=== PATIENT | female | born 1980 | race Caucasian/White ===

== ENCOUNTER 2022-11-23 06:42 | Emergency (ER) | payer OTHER ==
[2022-11-23 08:37] LABS: Urine Blood 1+ (Negative); Urine Glucose Negative (Negative); Urine Protein Negative (Negative); Urine Specific Gravity 1.025 (1.005-1.030)
[2022-11-23 08:57] LABS: Urine Bacteria 20-50 /HPF (<20); Urine Mucus Slight /HPF (None Seen); Urine RBC <5 /HPF (None Seen); Urine WBC Clump Rare /HPF (None Seen)
--- NOTE | 2022-11-23 09:08 | EDPHYS ---
Physician Documentation [facility] Name: Fabiola Lopez Age: 42 yrs Sex: Female : 1980 Arrival Date: 11/23/2022 Time: 06:49 Bed IW1 Private MD: ED Physician Osman Stephenson HPI: 11/23 08:00 This 42 yrs old Female presents to ER via Ambulatory with complaints of Vaginal kb Infection. 08:00 The patient presents with a possible exposure to a sexually transmitted disease. Onset: kb The symptoms/episode began/occurred this morning. Modifying factors: The symptoms are alleviated by nothing, the symptoms are aggravated by nothing. Associated signs and symptoms: The patient has no apparent associated signs or symptoms. Severity of symptoms: At their worst the symptoms were mild, in the emergency department the symptoms are unchanged. The patient is sexually active, reports multiple partners. The patient has experienced similar episodes in the past, a few times. The patient has not recently seen a physician. Pt presents because she feels like she has a vaginal infection. States she feels like her pH is off. Denies urinary symptoms, vaginal bleeding, vaginal discharge. Pt also reports chronic sciatica with right hip pain for 6 months that is better today than it had been. Reports she takes hydrocodone and soma "when I can get it off the street.". 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 - Social history:: Smoking status: Patient reports the use of cigarette tobacco products, denies chronic smoking, but will smoke occasionally. ROS: 07:57 Constitutional: Negative for fever, chills, and weight loss. kb 07:57 : Positive for "it feels like my pH is off". 07:57 All other systems are negative. 09:13 MS/extremity: Positive for pain, of the right hip. kb Exam: 07:57 Constitutional: This is a well developed, well nourished patient who is awake, alert, kb and in no acute distress. Head/Face: Normocephalic, atraumatic. ENT: Moist Mucous membranes Cardiovascular: Regular rate and rhythm with a normal S1 and S2. No gallops, murmurs, or rubs. No pulse deficits. Respiratory: Respirations even and unlabored. No increased work of breathing. Talking in full sentences Abdomen/GI: Soft, non-tender. No distention Back: No spinal tenderness. No costovertebral tenderness. Full range of motion. Skin: Warm, dry with normal turgor. Normal color. MS/ Extremity: Pulses equal, no cyanosis. Neurovascular intact. Full, normal range of motion. Neuro: Awake and alert, GCS 15, oriented to person, place, time, and situation. Moves all extremities. Normal gait. Vital Signs: 06:53 BP 138 / 98; Pulse 106; Resp 18; Temp 97; Pulse Ox 100% ; Weight 90.72 kg; Height 5 ft. tw5 9 in. (175.26 cm); Pain 4/10; 06:53 Body Mass Index 29.53 (90.72 kg, 175.26 cm) tw5 MDM: 06:50 Patient medically screened. 07:21 Differential diagnosis: bacterial infection, UTI. Data reviewed: vital signs, nurses kb notes. Test considered but Not performed: X-ray: hip x-ray considered but pt has had no injury/trauma and pain is chronic. 08:12 ED course: Awaiting urine sample, pt has been asked multiple times and reports she doesn't feel an urge to urinate yet. 09:06 I considered the following discharge prescriptions or medication management in the emergency department Pain Medications: At this time, prescription pain medications are not recommended. 09:06 Counseling: I had a detailed discussion with the patient and/or guardian regarding: the historical points, exam findings, and any diagnostic results supporting the discharge/admit diagnosis, lab results, the need for outpatient follow up, a family practitioner, to return to the emergency department if symptoms worsen or persist or if there are any questions or concerns that arise at home. 10:56 Differential diagnosis: pelvic inflammatory disease, urinary tract infection. kb 11/23 07:05 Order name: Urine Microscopic Only; Complete Time: 09:06 kb 11/23 08:38 Order name: Urine Dipstick-Ancillary; Complete Time: 08:42 EDMS 11/23 07:05 Order name: Urine Dipstick-Ancillary (obtain specimen); Complete Time: 08:39 kb 11/23 07:05 Order name: Urine Test (obtain specimen); Complete Time: 08:39 kb 11/23 08:50 Order name: Urine --Ancillary (enter results); Complete Time: 09:15 bd Administered Medications: No medications were administered Disposition: 11/24 06:05 Co-signature as Attending Physician, Osman Stephenson MD I reviewed the patient's care rt provided by the Advanced Practice Provider and agree with the diagnosis and treatment plan. Disposition Summary: 11/23/22 09:07 Discharge Ordered Location: Home kb Condition: Stable kb Diagnosis - UTI/ Urinary tract infection, site not specified kb Followup: kb - With: Emergency Department - When: As needed - Reason: Worsening of condition Followup: kb - With: Private Physician - When: 2 - 3 days - Reason: Recheck today's complaints, Continuance of care, Re-evaluation by your physician Discharge Instructions: - Discharge Summary Sheet kb - Urinary Tract Infection, Adult, [id number]-[id number] kb Forms: - Medication Reconciliation Form kb - Thank You Letter kb - Antibiotic Education kb - Prescription Opioid Use kb Prescriptions: - Macrobid 100 mg Oral Capsule - take 1 capsule by ORAL route every 12 hours for 10 days; 20 capsule; Refills: kb 0, Product Selection Permitted - Metronidazole 500 mg Oral Tablet - take 1 tablet by ORAL route every 8 hours for 7 days; 21 tablet; Refills: 0, kb Product Selection Permitted Signatures: Dispatcher [employer] EDMO Megan Anguiano, LAURAC SALES TRAINING REPRESENTATIVE-Sandi Arroyo tw5 Osman Stephenson MD MD rt Corrections: (The following items were deleted from the chart) 11/23 09:15 08:00 Pt presents because she feels like she has a vaginal infection. States she feels kb like her pH is off. Denies urinary symptoms, vaginal bleeding, vaginal discharge. . kb
--- NOTE | 2022-11-23 09:08 | ER ---
Nurse's Notes [facility] Name: Fabiola Lopez Age: 42 yrs Sex: Female : 1980 Arrival Date: 11/23/2022 Time: 06:49 Bed IW1 Private MD: Diagnosis: UTI/ Urinary tract infection, site not specified Presentation: 11/23 06:53 Chief complaint: Patient states: "I have an infection, in my vagina and I just want it tw5 taken care.". Coronavirus screen: Vaccine status: Patient reports being unvaccinated. Ebola Screen: Patient negative for fever greater than or equal to 101.5 degrees Fahrenheit, and additional compatible Ebola Virus Disease symptoms Patient denies exposure to infectious person. Patient denies travel to an Ebola-affected area in the 21 days before illness onset. Initial Sepsis Screen: Does the patient meet any 2 criteria? HR > 90 bpm. Does the patient have a suspected source of infection? Yes: Dysuria/Frequency/Urgency/UTI. Risk Assessment: Do you want to hurt yourself or someone else? Patient reports no desire to harm self or others. Onset of symptoms is unknown. 06:53 Method Of Arrival: Ambulatory tw5 06:53 Acuity: DELFINA 4 tw5 07:03 Coronavirus screen: Vaccine status:. tw5 Triage Assessment: 07:03 General: Appears uncomfortable, Behavior is crying. 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 - Social history:: Smoking status: Patient reports the use of cigarette tobacco products, denies chronic smoking, but will smoke occasionally. Screenin:59 [facility] ED Fall Risk Assessment (Adult) History of falling in the last 3 months, tw5 including since admission No falls in past 3 months (0 pts). Abuse screen: Has been threatened or abused. Nutritional screening: No deficits noted. Tuberculosis screening: No symptoms or risk factors identified. Assessment: 06:59 General: Behavior is appropriate for age, anxious, crying. Pain: Pain currently is 8 tw5 out of 10 on a pain scale. 07:10 Reassessment: not in lobby. Told registration she was going to her vehicle to smoke. ll1 07:20 Reassessment: still not in lobby. ll1 07:30 Reassessment: Has not returned from outside. ll1 07:40 Reassessment: No changes from previously documented assessment. Patient drinking fluids ll1 to help provide a urine sample. Given another urine cup, as she left the last one in her vehicle. No longer crying. 07:57 Reassessment: still trying to provide a urine sample. ll1 08:39 Reassessment: No changes from previously documented assessment. Patient and/or family ss updated on plan of care and expected duration. Pain level reassessed. UA sent to lab. 09:03 Reassessment: Micro tech called stating that they need a little more urine in order to ss run the culture. Attempted to locate patient in lobby. Unable to locate patient. ER registration staff states that patient has been going to her car to go smoke. TAYLER Guzman notified and states she will discharge patient with abx. Vital Signs: 06:53 BP 138 / 98; Pulse 106; Resp 18; Temp 97; Pulse Ox 100% ; Weight 90.72 kg; Height 5 ft. tw5 9 in. (175.26 cm); Pain 4/10; 06:53 Body Mass Index 29.53 (90.72 kg, 175.26 cm) tw5 ED Course: 06:49 Patient arrived in ED. ja2 06:50 Megan Anguiano FNP-C [facility] kb 06:50 Osman Stephenson MD is Attending Physician. kb 06:57 Triage completed. tw5 07:03 Arm band placed on left wrist. tw5 07:03 No provider procedures requiring assistance completed. tw5 07:06 Terrence Avila, RN is Primary Nurse. ll1 07:06 Patient placed in waiting room. ll1 08:39 Urine Microscopic Only Sent. ss 09:16 Patient did not have IV access during this emergency room visit. ss Administered Medications: No medications were administered Medication: 06:59 VIS not applicable for this client. tw5 Outcome: 09:07 Discharge ordered by . kb 09:16 Discharged to home ambulatory. ss 09:16 Condition: good 09:16 Discharge instructions given to patient, Instructed on discharge instructions, follow up and referral plans. medication usage, Demonstrated understanding of instructions, follow-up care, medications, Prescriptions given X 2. 09:16 Patient left the ED. ss Signatures: Megan Anguiano, MIKA DUFF-Dara Velasquez RN RN ss Terrence Avila RN RN ll1 Linda Mooney Tiffany tw5
[2022-11-23 09:09] LABS: Urine Specific Gravity/Preg 1.025 (1.005-1.030)
== END 2022-11-23 09:16 | disposition home or self-care (01) ==
LOC: ER 06:42
DX: N39.0 Urinary tract infection, site not specified (principal)
CPT/HCPCS: 81003; 81015; 81025; 99283

== ENCOUNTER 2023-06-19 22:20 | Emergency (ER) | payer OTHER, SELFPAY ==
--- NOTE | 2023-06-19 23:15 | EDPHYS ---
Physician Documentation [facility] Name: Fabiola Lopez Age: 43 yrs Sex: Female : 1980 Arrival Date: 06/19/2023 Time: 22:20 Bed 12 Private MD: ED Physician Henrry Carrasco HPI: 06/19 23:17 This 43 yrs old Female presents to ER via Ambulatory with complaints of Headache, sb4 Nausea. 06/20 00:58 The patient complains of pain to the forehead. The patient describes the headache as sb4 intermittent, pounding. Onset: The symptoms/episode began/occurred 8 hour(s) ago. Associated signs and symptoms: Pertinent positives: dizziness, nausea, Pertinent negatives: fever, neck stiffness, vomiting. Severity of symptoms: At its worst the pain was moderate, in the emergency department the pain has improved. Headache History: The patient has had previous headaches and this one is similar to previous episodes. Patient states that she had a severe headache earlier in the day prior to her previous headaches but it has now improved. She is not wanting a work-up done, just some relief so she can go home and lay down. Historical: - Allergies: 06/19 23:16 No Known Allergies; pf1 - PMHx: 23:16 Migraine; kidney infection; pf1 - PSHx: 23:16 section; pf1 - Immunization history:: Adult Immunizations up to date, Client reports having NOT received the Covid vaccine. Last tetanus immunization: < 10 years ago Flu vaccine is not up to date. - Social history:: Smoking status: Patient reports the use of cigarette tobacco products, smokes one pack cigarettes per day. Patient uses street drugs, marijuana, Methamphetamine (Meth) Patient/guardian denies using alcohol. ROS: 06/20 00:58 Constitutional: Negative for fever, chills, and weight loss, Eyes: Negative for injury, sb4 pain, redness, and discharge, ENT: Negative for injury, pain, and discharge, Cardiovascular: Negative for chest pain, palpitations, and edema, Respiratory: Negative for shortness of breath, cough, wheezing, and pleuritic chest pain, Abdomen/GI: Negative for abdominal pain, nausea, vomiting, diarrhea, and constipation, Back: Negative for injury and pain, MS/Extremity: Negative for injury and deformity, Skin: Negative for injury, rash, and discoloration. Neuro: Positive for dizziness, headache, Negative for altered mental status, syncope. All other systems are negative. Exam: 00:58 Constitutional: This is a well developed, well nourished patient who is awake, alert, sb4 and in no acute distress. Head/Face: Normocephalic, atraumatic. Eyes: Extra-ocular motions intact. Periorbital areas with no swelling, redness, or edema. Cardiovascular: Regular rate and rhythm with a normal S1 and S2. Respiratory: Lungs have equal breath sounds bilaterally, clear to auscultation and percussion. No rales, rhonchi or wheezes noted. No increased work of breathing, no retractions or nasal flaring. Abdomen/GI: Soft, non-tender, no distension. Skin: Warm, dry with normal turgor. Normal color with no rashes, no lesions, and no evidence of cellulitis. MS/ Extremity: Pulses equal, no cyanosis. Neurovascular intact. Full, normal range of motion. Neuro: Awake and alert, GCS 15, oriented to person, place, time, and situation. Cranial nerves II-XII grossly intact. Motor strength 5/5 in all extremities. Sensory grossly intact. Cerebellar exam normal. Normal gait. Vital Signs: 06/19 23:05 BP 131 / 89; Pulse 89; Resp 18; Temp 97.4; Pulse Ox 100% on R/A; Weight 100.3 kg; pf1 Height 5 ft. 9 in. ; Pain 5/10; 23:05 Body Mass Index 32.65 (100.30 kg, 175.26 cm) pf1 23:05 Pain Scale: Adult pf1 Samuel Coma Score: 06/20 00:58 Eye Response: spontaneous(4). Motor Response: obeys commands(6). Verbal Response: sb4 oriented(5). Total: 15. MDM: 06/19 22:43 Patient medically screened. sb4 06/20 00:58 Differential diagnosis: hypertensive headache, migraine, tension headache, vasomotor sb4 headache. Data reviewed: vital signs, nurses notes, and as a result, I will discharge patient. Test considered but Not performed: Labs: Patient declined. CT: Head CT- not indicated. Counseling: I had a detailed discussion with the patient and/or guardian regarding: the historical points, exam findings, and any diagnostic results supporting the discharge/admit diagnosis, to return to the emergency department if symptoms worsen or persist or if there are any questions or concerns that arise at home. Administered Medications: 06/19 23:28 Drug: Ketorolac IM 30 mg Route: IM; Site: right gluteus; cg 23:37 Follow up: Response: No adverse reaction; Marked relief of symptoms pf1 Disposition: 06/20 07:28 Co-signature as Attending Physician, Henrry Carrasco MD I agree with the assessment sp4 and plan of care. I reviewed the patient's care provided by the Advanced Practice Provider and agree with the diagnosis and treatment plan. Disposition Summary: 06/19/23 23:15 Discharge Ordered Location: Home sb4 Problem: new sb4 Symptoms: have improved sb4 Condition: Stable sb4 Diagnosis - Headache sb4 Followup: sb4 - With: Private Physician - When: As needed - Reason: Recheck today's complaints, Continuance of care, Re-evaluation by your physician Discharge Instructions: - Discharge Summary Sheet sb4 - Migraine Headache sb4 Forms: - Medication Reconciliation Form sb4 - Thank You Letter sb4 - Antibiotic Education sb4 - Prescription Opioid Use sb4 - Patient Portal Instructions sb4 Signatures: Alice Allen, PEGGY RN Maine Coto PA-C PA-C sb4 Samara Escoto RN RN pf1 Henrry Carrasco MD MD sp4
[2023-06-19] MEDS ORDERED: KETOROLAC 30 MG/ML INJ ONE (23:35)
--- NOTE | 2023-06-19 23:37 | ER ---
Nurse's Notes [facility] Name: Fabiola Lopez Age: 43 yrs Sex: Female : 1980 Arrival Date: 06/19/2023 Time: 22:20 Bed 12 Private MD: Diagnosis: Headache Presentation: 06/19 23:05 Chief complaint: Patient states: headache pain of 5. onset at 1400 with nausea. Patient pf1 stated is feeling better at this time. Coronavirus screen: Vaccine status:. Coronavirus screen: Vaccine status: Patient reports being unvaccinated. Client denies travel out of the [place] in the last 14 days. At this time, the client does not indicate any symptoms associated with coronavirus-19. Ebola Screen: Patient negative for fever greater than or equal to 101.5 degrees Fahrenheit, and additional compatible Ebola Virus Disease symptoms. Initial Sepsis Screen: Does the patient meet any 2 criteria? No. Patient's initial sepsis screen is negative. Does the patient have a suspected source of infection? No. Patient's initial sepsis screen is negative. Risk Assessment: Do you want to hurt yourself or someone else? Patient reports no desire to harm self or others. 23:05 Method Of Arrival: Ambulatory pf1 23:05 Acuity: DELFINA 4 pf1 23:05 Onset of symptoms was June 19, 2023 at 14:00. pf1 Triage Assessment: 23:15 Headache History: The patient has had previous headaches and this one is similar to pf1 previous episodes. Historical: - Allergies: 23:16 No Known Allergies; pf1 - PMHx: 23:16 Migraine; kidney infection; pf1 - PSHx: 23:16 section; pf1 - Immunization history:: Adult Immunizations up to date, Client reports having NOT received the Covid vaccine. Last tetanus immunization: < 10 years ago Flu vaccine is not up to date. - Social history:: Smoking status: Patient reports the use of cigarette tobacco products, smokes one pack cigarettes per day. Patient uses street drugs, marijuana, Methamphetamine (Meth) Patient/guardian denies using alcohol. Screenin:15 [facility] ED Fall Risk Assessment (Adult) History of falling in the last 3 months, pf1 including since admission No falls in past 3 months (0 pts) Confusion or Disorientation No (0 pts) Intoxicated or Sedated No (0 pts) Impaired Gait No (0 pts) Mobility Assist Device Used No (0 pt) Altered Elimination No (0 pt) Score/Fall Risk Level 0 - 2 = Low Risk Oriented to surroundings, Maintained a safe environment, Educated pt \T\ family on fall prevention, incl call for assistance when getting out of bed, Assessed \T\ reinforced patient's understanding of fall precautions, Provided non-skid footwear, Hourly rounding (assess needs \T\ fall precautionary measures) done, Used ambulatory aids as needed (educated on \T\ assisted with), Used gait belt as appropriate. 23:15 Abuse screen: Denies threats or abuse. Nutritional screening: No deficits noted. pf1 Tuberculosis screening: No symptoms or risk factors identified. Assessment: 23:15 General: Appears in no apparent distress. comfortable, well groomed, well developed, pf1 Behavior is calm, cooperative, appropriate for age, quiet. 23:15 Pain: Complains of pain in forehead Pain currently is 5 out of 10 on a pain scale. pf1 Neuro: Level of Consciousness is awake, alert, obeys commands, Oriented to person, place, time, situation, Reports headache frontal area. Cardiovascular: No deficits noted. Capillary refill < 3 seconds Patient's skin is warm and dry. Respiratory: No deficits noted. Airway is patent Respiratory effort is even, unlabored, Respiratory pattern is regular, symmetrical. GI: No deficits noted. No signs and/or symptoms were reported involving the gastrointestinal system. Reports nausea. : No deficits noted. No signs and/or symptoms were reported regarding the genitourinary system. EENT: No deficits noted. No signs and/or symptoms were reported regarding the EENT system. Derm: No deficits noted. No signs and/or symptoms reported regarding the dermatologic system. Vital Signs: 23:05 BP 131 / 89; Pulse 89; Resp 18; Temp 97.4; Pulse Ox 100% on R/A; Weight 100.3 kg; pf1 Height 5 ft. 9 in. ; Pain 5/10; 23:05 Body Mass Index 32.65 (100.30 kg, 175.26 cm) pf1 23:05 Pain Scale: Adult pf1 Matlock Coma Score: 06/20 00:58 Eye Response: spontaneous(4). Motor Response: obeys commands(6). Verbal Response: sb4 oriented(5). Total: 15. ED Course: 06/19 22:26 Patient arrived in ED. es 22:43 Maine Vargas [facility]-C [facility]. sb4 22:43 Henrry Carrasco MD is Attending Physician. sb4 23:15 Triage completed. pf1 23:15 No provider procedures requiring assistance completed. pf1 23:15 Patient did not have IV access during this emergency room visit. pf1 23:15 Patient has correct armband on for positive identification. pf1 23:15 Provided Education on: medication administration. pf1 23:15 Arm band placed on right wrist. pf1 Administered Medications: 23:28 Drug: Ketorolac IM 30 mg Route: IM; Site: right gluteus; cg 23:37 Follow up: Response: No adverse reaction; Marked relief of symptoms pf1 Medication: 23:37 VIS not applicable for this client. pf1 Outcome: 23:15 Discharge ordered by . sb4 23:36 Discharged to home ambulatory. pf1 23:36 Condition: improved 23:36 Discharge instructions given to patient, Instructed on discharge instructions, follow up and referral plans. Demonstrated understanding of instructions, follow-up care. 23:37 Patient left the ED. pf1 Signatures: Christiane Trejo Cindy, RN RN Maine Vargas PA-C PA-C sb4 Samara Escoto RN RN pf1
[2023-06-19 23:42] VITALS: BP 131/89; TEMP 97.4; O2SAT 100
== END 2023-06-19 23:37 | disposition home or self-care (01) ==
LOC: ER 22:20
DX: R51.9 Headache, unspecified (principal); R42 Dizziness and giddiness
CPT/HCPCS: 96372; 99284

== ENCOUNTER 2023-09-13 21:05 | Emergency (ER) | payer SELFPAY ==
[2023-09-13] MEDS ORDERED: CYCLOBENZAPRINE 10 MG TAB ONE (22:45)
[2023-09-13] MEDS ORDERED: dexAMETHasone 4 MG/ML VIAL ONE (22:45)
[2023-09-13] MEDS ORDERED: KETOROLAC 30 MG/ML INJ ONE (22:45)
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
== END 2023-09-13 23:07 | disposition home or self-care (01) ==
LOC: ER 21:05
DX: M54.31 Sciatica, right side (principal)
CPT/HCPCS: 99282; J1100

== ENCOUNTER 2024-02-16 13:28 | Emergency (ER) | payer OTHER ==
[2024-02-16] MEDS ORDERED: NA CHLORIDE 0.9% 1,000 ML ONE (14:46)
[2024-02-16 15:30] LABS: Specific Gravity > 1.030 (1.005-1.030)
[2024-02-16 15:38] LABS: Barbiturates NEGATIVE (NEGATIVE); Benzodiazepines NEGATIVE (NEGATIVE); Cocaine NEGATIVE (NEGATIVE); METHAMPHETAM POSITIVE (NEGATIVE); Methadone NEGATIVE (NEGATIVE); Opiates NEGATIVE (NEGATIVE); Phencyclidine NEGATIVE (NEGATIVE); THC Cannibis NEGATIVE (NEGATIVE)
[2024-02-16 15:58] LABS: Specific Gravity > 1.030 (1.005-1.030); Sqamous Epithelial <5 /HPF (None Seen); Urine Bacteria 20-50 /HPF (<20); Urine Bilirubin NEGATIVE (Negative); Urine Blood 2+ (Negative); Urine Clarity Turbid (Clear); Urine Color Yellow (Yellow); Urine Culture Reflex Order REFLEXED; Urine Glucose NEGATIVE (Negative); Urine Ketones NEGATIVE (Negative); Urine Microscopic Reflex YN ORDER UMIC; Urine Mucus Slight /HPF (None Seen); Urine Nitrite NEGATIVE (Negative); Urine Protein TRACE (Negative); Urine RBC >50 /HPF (None Seen); Urine Urobilinogen Normal (Normal); Urine WBC 20-50 /HPF (<5); Urine pH 5.5 (5.0-7.0)
[2024-02-16 16:27] LABS: Absolute Basophils 0.1 K/uL (0-0.5); Absolute Eosinophils 0.3 K/uL (0-0.5); Absolute Lymphocytes (CBC) 2.3 K/uL (0.7-4.9); Absolute Monocytes 0.7 K/uL (0.1-1.3); Absolute Neutrophil 5.4 K/uL (1.8-8.0); Basophils % 0.8 % (0-1.3); Eosinophils % 2.9 % (0-4.4); Hematocrit 38.4 % (36.0-45.0); Hemoglobin 13.5 g/dL (12.0-15.0); Lymphocytes % 26.1 % (15.3-44.8); MCH 31.2 pg (27.0-35.0); MCHC 35.3 g/dL (32.0-36.0); MCV 88.5 fL (80-100); MPV 7.8 fL (7.6-11.3); Monocytes % 8.4 % (3.3-12.3); Neutrophils % 61.8 % (41.7-73.7); Nucleated RBC Absolute Count 0.1 (0-0); Nucleated Red Blood Cells % 0.7 % (0-0); Platelets 182 thou/uL (152-406); RBC Red Blood Cell Count 4.33 M/uL (3.86-4.86); Red Cell Distribution Width 12.4 % (12.1-15.2)
[2024-02-16 16:31] LABS: Albumin 3.2 g/dL (3.4-5.0); Albumin/Globulin Ratio 0.8 (1.1-1.8); Anion Gap 6.7 mEq/L (5.0-15.0); Bilirubin Total 0.3 mg/dL (0.2-1.0); Globulin 3.9 g/dL (2.3-3.5); Potassium 3.7 mEq/L (3.5-5.1); Protein, Total 7.1 g/dL (6.4-8.2)
[2024-02-16] MEDS ORDERED: KETOROLAC 30 MG/ML INJ ONE (16:31)
--- NOTE | 2024-02-16 17:04 | RAD REPORT ---
EXAM DESCRIPTION: CTAbdomen Pelvis W Contrast - 02/16/2024 4:55 pm CLINICAL HISTORY: Abdominal pain. ABD PAIN COMPARISON: Abdomen Pelvis Wo Contrast dated 12/02/2023 TECHNIQUE: Biphasic CT imaging of the abdomen and pelvis was performed with 100 ml non-ionic IV cont rast. All CT scans are performed using dose optimization technique as appropriate and may include automated exposure control or mA/KV adjustment according to patient size. FINDINGS: The lung bases are clear. The liver, spleen, pancreas, adrenal glands and kidneys are within normal limits. No bowel obstruction, free air, free fluid or abscess. There is significant stool retention seen thro ughout the colon. The appendix is normal. No evidence of significant lymphadenopathy. No suspicious bony findings. IMPRESSION: No acute intra-abdominal or pelvic finding. Prominent stool retention throughout the colon.
[2024-02-16 17:26] LABS: Blood Morphology Comment NOT SEEN (NOT SEEN); Platelet Estimate ADEQ; White Blood Cell Scan OK (OK)
[2024-02-16] MEDS ORDERED: CEFTRIAXONE 1000 MG/VIAL ONE (18:38)
--- NOTE | 2024-02-16 18:41 | EDPHYS ---
Physician Documentation [facility] Name: Fabiola Lopez Age: 44 yrs Sex: Female : 1980 Arrival Date: 02/16/2024 Time: 13:28 Bed 20 Private MD: ED Physician Avi Cordero HPI: 02/15 14:00 This 44 yrs old Female presents to ER via Ambulatory with complaints of Abdominal Pain, cp Vaginal issue. 14:00 The patient presents with abdominal pain. Associated signs and symptoms: Pertinent cp positives: vaginal discharge. 14:00 Onset: The symptoms/episode began/occurred 7 day(s) ago. cp 14:00 The symptoms do not radiate. cp 14:00 Modifying factors: the symptoms are aggravated by movement. Severity of pain: in the cp emergency department the pain is unchanged despite home interventions. 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 - Infectious Disease History:: Denies. - Social history:: Smoking status: unknown. ROS: 14:05 Eyes: Negative for injury, pain, redness, and discharge, cp 14:05 Constitutional: Negative for fever, poor PO intake, 14:05 ENT: Negative for drainage from ear(s), ear pain, sore throat, difficulty swallowing, difficulty handling secretions, 14:05 Cardiovascular: Negative for chest pain, 14:05 Respiratory: Negative for cough, shortness of breath, wheezing, 14:05 Abdomen/GI: Positive for abdominal pain, 14:05 : Positive for vaginal discharge, Negative for flank pain, 14:05 Neuro: Negative for altered mental status, headache, 14:05 All other systems are negative, Exam: 14:10 Constitutional: The patient appears in no acute distress, alert, awake, non-toxic, well cp developed, well nourished, anxious, tearful 14:10 Head/Face: Normocephalic, atraumatic. cp 14:10 Eyes: Periorbital structures: appear normal, Conjunctiva: normal, no exudate, no injection, Sclera: no appreciated abnormality, Lids and lashes: appear normal, bilaterally, 14:10 ENT: External ear(s): are unremarkable, Nose: is normal, Mouth: Lips: moist, Oral mucosa: pink and intact, moist, Posterior pharynx: is normal, airway is patent, no erythema, no exudate, 14:10 Chest/axilla: Inspection: normal, 14:10 Cardiovascular: Rate: tachycardic, Rhythm: regular, 14:10 Respiratory: the patient does not display signs of respiratory distress, Respirations: normal, no use of accessory muscles, no retractions, labored breathing, is not present, Breath sounds: are clear throughout, no decreased breath sounds, no stridor, no wheezing, 14:10 Abdomen/GI: Inspection: abdomen appears normal, Bowel sounds: active, all quadrants, Palpation: soft, in all quadrants, moderate abdominal tenderness, in the right lower quadrant and left lower quadrant, rebound tenderness, is not appreciated, involuntary guarding, is not appreciated, 14:10 Back: CVA tenderness, is absent, 14:10 Neuro: Orientation: to person, place \T\ time. Mentation: able to follow commands, Motor: moves all fours, strength is normal, Sensation: is normal, 18:35 : Pelvic Exam: The exam is refused by the patient/guardian. The risks and cp consequences are understood by the patient, Vital Signs: 13:51 BP 152 / 120; Pulse 110; Resp 20 S; Temp 97.1(TE); Pulse Ox 100% on R/A; Weight 97.52 aa5 kg (R); Height 5 ft. 9 in. (R); 15:11 BP 131 / 85; Pulse 99; Resp 18; Pulse Ox 100% on R/A; mg7 17:08 BP 139 / 78; Pulse 89; Resp 18; Pulse Ox 100% on R/A; mg7 17:33 BP 139 / 78; Pulse 93; Resp 20; Pulse Ox 100% on R/A; mg7 18:36 BP 140 / 77; Pulse 90; Resp 18; Temp 98.6; Pulse Ox 98% on R/A; Pain 3/10; mg7 13:51 Body Mass Index 31.75 (97.52 kg, 175.26 cm) aa5 18:36 Pain Scale: Adult mg7 13:51 Pt crying see triage note. aa5 Samuel Coma Score: 16:59 Eye Response: spontaneous(4). Motor Response: obeys commands(6). Verbal Response: mg7 oriented(5). Total: 15. MDM: 13:52 Patient medically screened. 16:00 Differential diagnosis: cholecystitis, Cholelithiasis, diverticulitis, non-specific abd cp pain, pancreatitis, Peptic Ulcer Disease, Perf. Duodenal Ulcer, Perf. Gastric Ulcer, Pyelonephritis, Ureterolithiasis, urinary tract infection, vaginitis. 18:40 Data reviewed: vital signs, nurses notes, lab test result(s), radiologic studies, CT cp scan. 18:40 I considered the following discharge prescriptions or medication management in the emergency department Medications were administered in the Emergency Department. See MAR. Counseling: I had a detailed discussion with the patient and/or guardian regarding the historical points, exam findings, and any diagnostic results supporting the discharge/admit diagnosis, lab results, radiology results, the need for outpatient follow up, a family practitioner, to return to the emergency department if symptoms worsen or persist or if there are any questions or concerns that arise at home. Response to treatment: the patient's symptoms have markedly improved after treatment, and as a result, I will discharge patient. Special discussion: Based on the patient's Hx, exam, and Dx evaluation, there is no indication for emergent surgery or inpatient Tx. It is understood by the patient/guardian that if the Sx's persist or worsen they need to return immediately for re-evaluation. 02/15 13:55 Order name: CBC with Diff 02/15 13:55 Order name: CMP; Complete Time: 17:14 02/15 17:14 Interpretation: Normal except: GFR 86; ALB 3.2; GLOB 3.9; A/G 0.8. 02/15 13:55 Order name: Lipase; Complete Time: 17:14 02/15 13:55 Order name: Test, Urine; Complete Time: 15:39 02/15 15:40 Interpretation: Reviewed. 02/15 13:55 Order name: Urinalysis w/ reflexes; Complete Time: 16:06 cp 02/15 16:06 Interpretation: Reviewed. 02/15 13:55 Order name: UDS; Complete Time: 15:39 02/15 15:39 Interpretation: Normal except: METHAMPHETAMINE POSITIVE. 02/15 16:02 Order name: Urine Culture EDNE 02/15 17:26 Order name: CBC Smear Scan EDNE 02/15 15:04 Order name: CT Abd/Pelvis - IV Contrast Only; Complete Time: 17:14 cp 02/15 17:18 Interpretation: Report reviewed. cp 02/15 13:55 Order name: IV Saline Lock; Complete Time: 15:09 cp 02/15 13:55 Order name: Labs collected and sent; Complete Time: 15:09 cp Administered Medications: 16:45 Drug: Ketorolac IVP 15 mg IVP once Route: IVP; Site: left antecubital; mg7 16:57 Drug: NS 0.9% IV 1000 ml IV at 1 bolus Per protocol; 1000 mL bolus Route: IV; Rate: 1 mg7 bolus; Site: left antecubital; 18:45 Follow up: IV Status: Completed infusion; IV Intake: 1000ml mg7 18:47 Drug: Rocephin IV 1 grams IV at calculated rate once; Given slow IV push per pharmacy mg7 instructions Route: IV; Rate: calculated rate; Site: right upper arm; 19:02 Follow up: Response: No adverse reaction mg7 18:58 Drug: AZITHromycin PO 1 grams PO once Route: PO; mg7 Disposition: 02/16 12:01 Co-signature as Attending Physician, Avi Cordero MD I reviewed the patient's care rn provided by the Advanced Practice Provider and agree with the diagnosis and treatment plan. Disposition Summary: 02/16/24 18:41 Discharge Ordered Notes: Location: Home cp Problem: new cp Symptoms: have improved cp Condition: Stable cp Diagnosis - Constipation cp - Urinary tract infection following delivery, unspecified cp - Lower abdominal pain, unspecified cp - Acute vaginitis cp - Adverse effect of amphetamines, initial encounter cp Followup: cp - With: Private Physician - When: 2 - 3 days - Reason: Recheck today's complaints Discharge Instructions: - Discharge Summary Sheet cp - Abdominal Pain, Adult cp - Constipation, Adult cp - Urinary Tract Infection, Adult cp - Vaginitis cp - Methamphetamines Use Disorder cp Forms: - Medication Reconciliation Form cp - Thank You Letter cp - Antibiotic Education cp - Prescription Opioid Use cp - Patient Portal Instructions cp - Leadership Thank You Letter cp Prescriptions: - Metronidazole 500 mg Oral Tablet - take 1 tablet ORAL route every 8 hours; 30 tablet; Refills: 0, Product cp Selection Permitted - cefpodoxime 200 mg Oral tablet - take 1 tablet ORAL route every 12 hours with food; 20 tablet; Refills: 0, cp Product Selection Permitted Signatures: Dispatcher [employer] Avi Fernandes MD MD rn Calderon, Audri RN RN aa5 Matti Smith PA PA cp Gilbert, Melissa RN RN mg7 Corrections: (The following items were deleted from the chart) 18:47 0404 14:00 Onset: The symptoms/episode began/occurred 3 day(s) ago, cp cp
--- NOTE | 2024-02-16 18:41 | ER ---
Nurse's Notes [facility] Name: Fabiola Lopez Age: 44 yrs Sex: Female : 1980 Arrival Date: 02/16/2024 Time: 13:28 Bed 20 Private MD: Diagnosis: Constipation;Urinary tract infection following delivery, unspecified;Lower abdominal pain, unspecified;Acute vaginitis;Adverse effect of amphetamines, initial encounter Presentation: 02/15 13:51 Chief complaint: Patient states: lower abd pain and vaginal discharge. aa5 13:51 Coronavirus screen: At this time, the client does not indicate any symptoms associated aa5 with coronavirus-19. Ebola Screen: Patient denies travel to an Ebola-affected area in the 21 days before illness onset. Initial Sepsis Screen: Does the patient meet any 2 criteria? HR > 90 bpm. Does the patient have a suspected source of infection? No. Patient's initial sepsis screen is negative. Risk Assessment: Do you want to hurt yourself or someone else? Patient reports no desire to harm self or others. Onset of symptoms was February 2024. 13:51 Acuity: DELFINA 3 aa5 13:51 Method Of Arrival: Ambulatory aa5 Triage Assessment: 13:51 General: Appears uncomfortable, Behavior is crying, emotional, pt states "I just feel aa5 like there is something wrong with me". Pt was verbally reassured during triage, and pt is more calm now. . Pain: Complains of pain in right lower quadrant and left lower quadrant. Neuro: Level of Consciousness is awake, alert, obeys commands, Oriented to person, place, time, situation. Respiratory: Airway is patent Respiratory effort is even, unlabored, Respiratory pattern is regular, symmetrical. GI: Reports lower abdominal pain. Derm: Skin is pink, warm \\T\\ dry. 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 - Infectious Disease History:: Denies. - Social history:: Smoking status: unknown. Screenin:[facility] ED Fall Risk Assessment (Adult) History of falling in the last 3 months, mg7 including since admission No falls in past 3 months (0 pts). Abuse screen: Denies threats or abuse. Denies injuries from another. Nutritional screening: No deficits noted. Tuberculosis screening: No symptoms or risk factors identified. Assessment: 16:59 General: Appears tearful, and anxious. Neuro: No deficits noted. Cardiovascular: No mg7 deficits noted. Respiratory: No deficits noted. GI: No deficits noted. : Reports vaginal itching, vaginal discharge and rash, symptoms beginning on the day of arrival Patient is sexually active. EENT: No deficits noted. 19:00 GI: No signs and/or symptoms were reported involving the gastrointestinal system. mg7 19:01 GI: No signs and/or symptoms were reported involving the gastrointestinal system. mg7 Vital Signs: 13:51 BP 152 / 120; Pulse 110; Resp 20 S; Temp 97.1(TE); Pulse Ox 100% on R/A; Weight 97.52 aa5 kg (R); Height 5 ft. 9 in. (R); 15:11 BP 131 / 85; Pulse 99; Resp 18; Pulse Ox 100% on R/A; mg7 17:08 BP 139 / 78; Pulse 89; Resp 18; Pulse Ox 100% on R/A; mg7 17:33 BP 139 / 78; Pulse 93; Resp 20; Pulse Ox 100% on R/A; mg7 18:36 BP 140 / 77; Pulse 90; Resp 18; Temp 98.6; Pulse Ox 98% on R/A; Pain 3/10; mg7 13:51 Body Mass Index 31.75 (97.52 kg, 175.26 cm) aa5 18:36 Pain Scale: Adult mg7 13:51 Pt crying see triage note. aa5 Samuel Coma Score: 16:59 Eye Response: spontaneous(4). Motor Response: obeys commands(6). Verbal Response: mg7 oriented(5). Total: 15. ED Course: 13:30 Patient arrived in ED. im 13:33 Matti Smith PA is PHCP. cp 13:33 Avi Cordero MD is Attending Physician. cp 13:51 Arm band placed on. aa5 13:53 Triage completed. aa5 14:44 Sana Barron, PEGGY is Primary Nurse. mg7 15:09 UDS Sent. mg7 15:09 Urinalysis w/ reflexes Sent. mg7 15:09 Test, Urine Sent. mg7 16:00 Initial lab(s) drawn, by me, sent to lab. Missed attempt(s): 22 gauge in right forearm. aa5 16:[address] via stretcher. mg7 16:[address] back from [address]. mg7 16:56 CT Abd/Pelvis - IV Contrast Only In Process Unspecified. EDMS 16:59 Patient has correct armband on for positive identification. Placed in gown. Bed in low mg7 position. Side rails up X 1. 16:59 No provider procedures requiring assistance completed. Inserted Midline placed by mg7 PEGGY Ford. Left upper arm - 20 G. 17:05 Patient moved back from CT. mg7 19:00 IV discontinued, intact. mg7 19:01 Provided Education on: discharge instruction . mg7 Administered Medications: 16:45 Drug: Ketorolac IVP 15 mg IVP once Route: IVP; Site: left antecubital; mg7 16:57 Drug: NS 0.9% IV 1000 ml IV at 1 bolus Per protocol; 1000 mL bolus Route: IV; Rate: 1 mg7 bolus; Site: left antecubital; 18:45 Follow up: IV Status: Completed infusion; IV Intake: 1000ml mg7 18:47 Drug: Rocephin IV 1 grams IV at calculated rate once; Given slow IV push per pharmacy mg7 instructions Route: IV; Rate: calculated rate; Site: right upper arm; 19:02 Follow up: Response: No adverse reaction mg7 18:58 Drug: AZITHromycin PO 1 grams PO once Route: PO; mg7 Medication: 16:59 VIS not applicable for this client. mg7 Intake: 18:45 IV: 1000ml; Total: 1000ml. mg7 Outcome: 18:41 Discharge ordered by . cp 18:59 Patient left the ED. mg7 19:00 Discharged to home ambulatory, mg7 19:00 Condition: good 19:00 Discharge instructions given to patient, Instructed on discharge instructions, follow up and referral plans. Demonstrated understanding of Signatures: Dispatcher [employer] EDMS Eladia Ochoa, RN RN aa5 Matti Smith PA PA cp Mendoza, Itzel im Gilbert, Melissa RN RN mg7 Corrections: (The following items were deleted from the chart) 13:54 13:51 Pulse 110bpm; Resp 20bpm; Spontaneous; Pulse Ox 100% RA; Temp 97.1F Temporal; aa5 aa5 13:56 13:51 BP 152 / 120; Pulse 110bpm; Resp 20bpm; Spontaneous; Pulse Ox 100% RA; Temp 97.1F aa5 Temporal; 97.52 kg Reported; Height 5 ft. 9 in. Reported; BMI: 31.7; aa5
[2024-02-16] MEDS ORDERED: AZITHROMYCIN 250 MG TAB ONE (18:56)
[2024-02-16 20:12] VITALS: BP 140/77; TEMP 98.6; O2SAT 98
== END 2024-02-16 18:59 | disposition home or self-care (01) ==
LOC: ER 13:28
DX: K59.00 Constipation, unspecified (principal); N39.0 Urinary tract infection, site not specified; N76.0 Acute vaginitis; T43.625A Adverse effect of amphetamines, initial encounter; Z88.5 Allergy status to narcotic agent
CPT/HCPCS: 87088; 85025; 81001; 87086; 36415; 81025; 83690; 80053; 80307; 74177; 99285; Q9967; J7030; J0696

== ENCOUNTER 2024-07-08 12:37 | Emergency (ER) | payer OTHER ==
[2024-07-08 18:58] LABS: Specific Gravity 1.029 (1.005-1.030); Sqamous Epithelial 20-50 /HPF (None Seen); Urine Bacteria <20 /HPF (<20); Urine Bilirubin NEGATIVE (Negative); Urine Blood 3+ (OVER) (Negative); Urine Clarity Extremely Turbid (Clear); Urine Color Light-Orange (Yellow); Urine Culture Reflex Order NOT NEEDED; Urine Glucose NEGATIVE (Negative); Urine Ketones NEGATIVE (Negative); Urine Microscopic Reflex YN ORDER UMIC; Urine Mucus 1+ /HPF (None Seen); Urine Nitrite 2+ (Negative); Urine Protein 2+ (Negative); Urine RBC >50 /HPF (None Seen); Urine Urobilinogen Normal (Normal); Urine WBC >50 /HPF (<5)
[2024-07-08] MEDS ORDERED: CEPHALEXIN 250 MG CAP ONE (19:23)
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
[2024-07-08] MEDS ORDERED: CEFTRIAXONE 500 MG/VIAL ONE (19:58)
[2024-07-08] MEDS ORDERED: AZITHROMYCIN 250 MG TAB ONE (19:58)
[2024-07-08] MEDS ORDERED: metroNIDAZOLE 500 MG TABLET ONE (19:59)
[2024-07-08] MEDS ORDERED: WATER FOR INJ,STERILE 10 ML ONE (19:59)
[2024-07-08] MEDS ORDERED: ONDANSETRON 4 MG (ODT) TAB ONE (19:59)
[2024-07-08 20:43] VITALS: TEMP 97.5; O2SAT 100
[2024-07-08 20:46] VITALS: BP 122/79
== END 2024-07-08 20:21 | disposition home or self-care (01) ==
LOC: ER 12:37
DX: N39.0 Urinary tract infection, site not specified (principal); T76.21XA Adult sexual abuse, suspected, initial encounter; Z72.0 Tobacco use
CPT/HCPCS: 81001; 96372; 99284; Q0162

== ENCOUNTER 2024-10-10 22:29 | Emergency (ER) | payer OTHER ==
--- NOTE | 2024-10-11 00:21 | ER ---
Nurse's Notes [facility] Name: Fabiola Lopez Age: 44 yrs Sex: Female : 1980 Arrival Date: 10/10/2024 Time: 22:29 Bed IW1 Private MD: Diagnosis: Headache;Pain in right leg Presentation: 10/10 22:48 Chief complaint: Patient states: Intermittent leg pain onset 1 year ago. Pt also report cm10 nausea. Coronavirus screen: Client denies travel out of the [place] in the last 14 days. Ebola Screen: Patient denies travel to an Ebola-affected area in the 21 days before illness onset. No symptoms or risks identified at this time. Initial Sepsis Screen: Does the patient meet any 2 criteria? HR > 90 bpm. Does the patient have a suspected source of infection? No. Patient's initial sepsis screen is negative. Risk Assessment: Do you want to hurt yourself or someone else? Patient reports no desire to harm self or others. Onset of symptoms is unknown. 22:48 Method Of Arrival: Ambulatory cm10 22:48 Acuity: DELFINA 4 cm10 Triage Assessment: 22:51 General: Appears in no apparent distress. uncomfortable, Behavior is calm, cooperative. cm10 Neuro: No deficits noted. Level of Consciousness is awake, alert, obeys commands, Oriented to person, place, time, situation. Respiratory: No deficits noted. Airway is patent Respiratory effort is even, unlabored, Respiratory pattern is regular, symmetrical. Historical: - Allergies: 22:50 Codeine; cm10 - PMHx: 22:50 kidney infection; Migraine; cm10 - PSHx: 22:50 section; endometrosis; cm10 - Immunization history:: Adult Immunizations not immunized. - Infectious Disease History:: Denies. - Social history:: Smoking status: Patient reports the use of cigarette tobacco products, smokes one pack cigarettes per day. Screenin/28 00:00 [facility] ED Fall Risk Assessment (Adult) History of falling in the last 3 months, ha1 including since admission No falls in past 3 months (0 pts) Confusion or Disorientation No (0 pts) Intoxicated or Sedated No (0 pts) Impaired Gait No (0 pts) Mobility Assist Device Used No (0 pt) Altered Elimination No (0 pt) Score/Fall Risk Level 0 - 2 = Low Risk Oriented to surroundings, Maintained a safe environment, Educated pt \T\ family on fall prevention, incl call for assistance when getting out of bed. Abuse screen: Denies threats or abuse. Denies injuries from another. Nutritional screening: No deficits noted. Tuberculosis screening: No symptoms or risk factors identified. Assessment: 00:38 Reassessment: CALLED PATIENT MULTIPLE TIME. PATIENT NOT AT LOBBY. ha1 Vital Signs: 10/10 22:51 BP 130 / 88; Pulse 110; Resp 18; Temp 97.2(TE); Pulse Ox 100% on R/A; Weight 97.52 kg; cm10 Height 5 ft. 9 in. ; Pain 6/10; 22:51 Body Mass Index 31.75 (97.52 kg, 175.26 cm) cm10 22:51 Pain Scale: Adult cm10 ED Course: 22:47 Patient arrived in ED. 2 22:48 Arik June RN is Primary Nurse. ay 22:48 Megan Anguiano [facility]-C [facility]. kb 22:48 Henrry Carrasco MD is Attending Physician. kb 22:50 Triage completed. cm10 22:52 Arm band placed on right wrist. Patient placed in waiting room. cm10 10/11 00:36 No provider procedures requiring assistance completed. Patient did not have IV access ha1 during this emergency room visit. 00:37 Patient has correct armband on for positive identification. ha1 Administered Medications: 00:39 Not Given (Physician Discretion): Ondansetron Oral Disintegrating Tablet 4 mg PO once ha1 00:39 Not Given (Physician Discretion): [id number] mg IM once ha1 Medication: 00:37 VIS not applicable for this client. ha1 Outcome: 00:20 Discharge ordered by . kb 00:36 Discharged to home ambulatory, ha1 00:36 Condition: stable 00:36 Discharge instructions given to PATIENT LEFT BEFORE DISCHARGE 00:40 Patient left the ED. ha1 Signatures: Megan Anguiano FNP-C FNP-Ckb Ayala, Heidy, RN RN 1 Aliya Ambrocio RN RN cm10 Lida Hanna 2 Arik June RN RN ay Corrections: (The following items were deleted from the chart) 10/10 22:51 22:50 Social history: Smoking status: unknown cm10 cm10
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
[2024-10-11 00:46] VITALS: BP 130/88; TEMP 97.2; O2SAT 100
== END 2024-10-11 00:40 | disposition home or self-care (01) ==
LOC: ER 22:29
DX: R51.9 Headache, unspecified (principal); M79.604 Pain in right leg; F17.210 Nicotine dependence, cigarettes, uncomplicated
CPT/HCPCS: 99282